=== PATIENT | male | born 1985 | race Two or more races ===

== ENCOUNTER 2025-06-23 12:28 | Emergency (ER) | payer OTHER ==
[~2025-06-23] VITALS: Ht 175.3 cm; Wt 98.9 kg
[2025-06-23 13:15] VITALS: BP 137/87; O2SAT 100
[2025-06-23] MEDS ORDERED: 0.9 % SODIUM CHLORIDE 500 ML IV ONE (13:30)
[2025-06-23] MEDS ORDERED: ONDANSETRON HCL 2 MG/ML VIAL IV ONE (13:30)
[2025-06-23 13:46] LABS: BASO % 0.2 % (0.1-1.2); EOS # 0.03 (0.04-0.54); EOS % 0.3 % (0.7-7.0); LYMPH # 1.94 (1.18-3.74); LYMPH % 22.6 % (19.3-53.1); MEAN PLATELET VOLUME 8.80 fl (9.4-12.4); MONO # 0.86 (0.24-0.82); MONO % 10.0 % (4.7-12.5); NEUT # 5.72 (1.56-6.13); NEUT % 66.6 % (34.0-71.1); RED CELL DISTRIBUTION WIDTH 12.4 % (11.6-14.4)
[2025-06-23 14:27] LABS: COVID-19 AG NEGATIVE (NEGATIVE)
[2025-06-23] MEDS ORDERED: OSEL75CA PO (14:36)
[2025-06-23] MEDS ORDERED: PEPCID AC20 MG PO (14:36)
[2025-06-23] MEDS ORDERED: PROBIOTIC1 EAC2 PO (14:36)
== END 2025-06-23 14:40 | disposition home or self-care (01) ==
LOC: ER 13:17
PROVIDERS: General Practice
DX: J10.1 Influenza due to other identified influenza virus with other respiratory manifestations (principal); Z20.822 Contact with and (suspected) exposure to COVID-19